=== PATIENT | female | born 1990 ===

== ENCOUNTER → 2017-04-16 | Outpatient (CLI) | payer BC, OTHER ==
[2017-04-19 00:53] LABS: CHLAMYDIA TRACH RNA*** NOT DETECTED (NOT DETECTED); GC (NEIS GONORRHOEAE)RNA** NOT DETECTED (NOT DETECTED)
== END | disposition home or self-care (01) ==
LOC: C.LABSPEC 09:39
PROVIDERS: ATTEND Physician Assistant
DX: N92.6 Irregular menstruation, unspecified (principal); N89.8 Other specified noninflammatory disorders of vagina